=== PATIENT | female | born 1950 | race Caucasian/White ===

== ENCOUNTER 2023-07-31 11:06 | Emergency (ER) | payer MEDICAID, OTHER ==
[~2023-07-31] VITALS: Ht 160 cm; Wt 91.0 kg
[2023-07-31 11:17] VITALS: O2SAT 98
[2023-07-31] MEDS ORDERED: NAPR500T7 MT (12:34)
[2023-07-31 13:13] VITALS: BP 158/78; PULSE 78; RESP 18; TEMP 98.4
== END 2023-07-31 13:14 | disposition home or self-care (01) ==
LOC: ER 11:06
DX: S62.101A Fracture of unspecified carpal bone, right wrist, initial encounter for closed fracture (principal); I10 Essential (primary) hypertension; E78.00 Pure hypercholesterolemia, unspecified; W18.30XA Fall on same level, unspecified, initial encounter; Y93.89 Activity, other specified; Y92.89 Other specified places as the place of occurrence of the external cause; Y99.8 Other external cause status
CPT/HCPCS: 29125; 73090; 73110; 99284

== ENCOUNTER 2023-08-19 12:05 | Emergency (ER) | payer MEDICAID, OTHER ==
[~2023-08-19] VITALS: Ht 152.4 cm; Wt 66.0 kg
[~2023-08-19 12:05] MED LIST: NAPR500T7 MT
[2023-08-19 12:16] VITALS: O2SAT 96
[2023-08-19 15:00] VITALS: TEMP 97.9
[2023-08-19] MEDS ORDERED: ACETAMINOPHEN 325MG TABLET PO ONE (15:00)
[2023-08-19 15:15] VITALS: BP 140/61; PULSE 94; RESP 16
[2023-08-19] MEDS ORDERED: KETOROLAC 60MG/2ML VIAL IM ONE (15:15)
[2023-08-19] MEDS ORDERED: TRAMADOL 50MG TABLET PO ONE (15:15)
[2023-08-19] MEDS ORDERED: TOPUD MT ×3 (15:32→15:54)
[2023-08-19] MEDS ORDERED: TRAM50TA3 MT ×2 (15:32→15:52)
== END 2023-08-19 16:05 | disposition home or self-care (01) ==
LOC: ER 12:05
DX: M54.42 Lumbago with sciatica, left side (principal); E78.00 Pure hypercholesterolemia, unspecified; I10 Essential (primary) hypertension
CPT/HCPCS: 96372; 99283; J1885; Z7610